=== PATIENT | female | born 1985 | race Two or more races ===

== ENCOUNTER 2020-12-18 09:05 | Emergency (ER) | payer SELFPAY ==
[~2020-12-18] VITALS: Ht 172.7 cm; Wt 59.0 kg
[2020-12-18 09:07] VITALS: BP 126/92
== END 2020-12-18 10:58 | disposition home or self-care (01) ==
LOC: ER 09:05
DX: S62.025A Nondisplaced fracture of middle third of navicular [scaphoid] bone of left wrist, initial encounter for closed fracture (principal); W00.0XXA Fall on same level due to ice and snow, initial encounter; Y93.23 Activity, snow (alpine) (downhill) skiing, snowboarding, sledding, tobogganing and snow tubing; Y92.89 Other specified places as the place of occurrence of the external cause; Y99.8 Other external cause status
CPT/HCPCS: 29125; 73130